=== PATIENT | male | born 1960 ===

== ENCOUNTER 2016-09-12 09:11 | Emergency (ER) | payer OTHER ==
[2016-09-12 09:43] LABS: BASOPHILS 0.6 % (0.0-2.0); EOSINOPHILS 0.7 % (0.0-6.0); HEMATOCRIT 48.6 % (42.0-54.0); HEMOGLOBIN 16.8 g/dL (14.0-18.0); LYMPHOCYTES 13.6 % (20.0-40.0); LYMPHOCYTES# 0.9 X 10^3uL (0.8-3.8); MEAN CELL VOLUME 88.2 fL (80.0-100.0); MEAN CORPUS. HGB CONCENTRATION 34.5 g/dL (32.0-36.0); MEAN CORPUSCULAR HEMOGLOBIN 30.4 pg (29.0-35.0); MEAN PLATELET VOLUME 8.9 fL (7.4-10.4); MONOCYTES 8.3 % (2.0-10.0); MONOCYTES# 0.5 X 10^3uL (0.2-1.0); NEUTROPHILS 76.8 % (54.0-75.0); NEUTROPHILS# 4.9 X 10^3uL (2.6-6.7); PLATELET COUNT 168 X 10^3uL (130-440); RED BLOOD COUNT 5.51 X 10^6uL (4.20-6.10); RED CELL DISTRIBUTION WIDTH 12.5 % (11.5-14.5); WHITE BLOOD COUNT 6.3 X 10^3uL (3.9-10.7)
[2016-09-12 09:57] LABS: ALBUMIN 4.4 g/dL (3.5-5.0); ALKALINE PHOSPHATASE 62 U/L (38-126); ALT 59 U/L (21-72); AST 34 U/L (17-59); BILIRUBIN, DIRECT 0.4 mg/dL (0.0-0.4); BILIRUBIN, TOTAL 0.9 mg/dL (0.2-1.3); BLOOD UREA NITROGEN 13 mg/dL (9-20); CALCIUM 9.2 mg/dL (8.4-10.2); CHLORIDE 103 mmol/L (98-107); EST GLOMERULAR FILTRATION RATE > 60 mL/min; GLUCOSE 102 mg/dL (70-100); LIPASE 58 U/L (23-300); POTASSIUM 3.7 mmol/L (3.5-5.1); SODIUM 141 mmol/L (137-145); TOTAL PROTEIN 7.8 g/dL (6.3-8.2)
[2016-09-12 10:03] LABS: URINE MUCUS NONE SEEN (Up to 25%); URINE SQUAMOUS EPITHELIAL CELL NONE SEEN (<= 15/hpf); URINE WBC NONE SEEN (0-4/hpf)
[2016-09-12] MEDS ORDERED: ONDANSETRON HCL 4 MG/2 ML VIAL ONE (10:03)
[2016-09-12 10:17] LABS: URINE APPEARANCE CLEAR; URINE COLOR YELLOW; URINE LEUKOCYTE ESTERASE NEGATIVE (NEGATIVE); URINE NITRITE NEGATIVE (NEGATIVE); URINE PROTEIN 10mg/dL (trace) (NEG - TRACE); URINE SPECIFIC GRAVITY > OR = 1.030 (0.001-1.035)
[2016-09-12 10:18] LABS: URINE AMORPHOUS SEDIMENT UP TO 25%/lpf (Up to 25%); URINE BILIRUBIN 0.5 mg/100ml (1+) (NEGATIVE); URINE BLOOD 10 Ery/uL (1+) (NEGATIVE); URINE GLUCOSE NORMAL (NEGATIVE); URINE KETONE 50mg/dL (2+) (NEGATIVE); URINE RBC 0-5/hpf (0-5/hpf); URINE UROBILINOGEN 0.2mg/dL (Normal) (NEG-1mg/dL)
[2016-09-12] MEDS ORDERED: AZITHROMYCIN 250 MG TABLET PO ONE (13:07)
--- NOTE | 2016-09-12 13:08 | ER PHYSICIAN DOCUMENTATION ---
Physician Documentation [facility] Name:Tre Stanley Age:55 yrs Sex:Male :1960 Arrival Date:09/12/2016 Time:09:11 Bed5 Private MD: Carlos Younger Disposition: 09/13 12:11 Chart complete. tl1 Disposition: 09/12/16 12:58 Discharged to Home/Self Care. Impression: Diarrhea Infectious. - Condition is Good. - Discharge Instructions: DIARRHEA, Bacterial (8y-Adult). - Medical Reconciliation form form. - Follow up: Private Physician; When: 4- 6 days; Reason: Recheck today's complaints, Continuance of care. - Problem is new. - Symptoms have improved. HPI: 09/12 09:42 This 55 yrs old Unknown Male presents to ER with complaints of Nausea, Diarrhea. tl1 09:42 The patient presents to the emergency department with nausea, with diarrhea, 6 times tl1 since last night. 09:42 Onset: The symptom(s)/episode began/occurred 2 day(s) ago. Possible causes: bad food tl1 exposure, sick contacts, travel, returned from [place], 2 weeks ago. Associated signs and symptoms: Pertinent positives: abdominal pain, nausea, some bloating. Stools are very foul smelling, Pertinent negatives: fever, GI bleeding, vomiting. The patient has not experienced similar symptoms in the past. 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 Historical: - Allergies: No known drug Allergies; - Home Meds: 1. losartan oral - PMHx: None; - PSHx: None; - Ebola Screening: : Patient negative for fever greater than or equal to 101.5 degrees Fahrenheit, and additional compatible Ebola Virus Disease symptoms. Patient denies exposure to infectious person. Patient denies travel to an Ebola-affected area in the 21 days before illness onset. No symptoms or risks identified at this time. . - Immunization history: Pneumococcal vaccine is up to date, Flu Vaccine < 1 year. - Social history: Smoking status: Patient states was never smoker of tobacco. Patient uses alcohol only on a social basis. Patient/guardian denies using street drugs, IV drugs, marijuana. ROS: 09:42 Abdomen/GI: Positive for abdominal pain, diarrhea, abdominal distension. tl1 Exam: 09:42 Constitutional: The patient appears in no acute distress, alert, awake, comfortable, tl1 non-diaphoretic, non-toxic, well developed, well hydrated, well groomed, well nourished. 09:42 Head/face: Exam is negative for acute changes. 09:42 ENT: Mouth: Oral mucosa: pink and intact, moist. 09:42 Neck: ROM/movement: is normal, is supple. 09:42 Cardiovascular: Rate: normal, Rhythm: regular, Heart sounds: normal. 09:42 Respiratory: Respirations: normal, Breath sounds: are normal. 09:42 Abdomen/GI: Bowel sounds: normal, Palpation: soft, mild abdominal tenderness, in the right upper quadrant and left upper quadrant. 09:42 Skin: Exam negative for acute changes. 09:42 Neuro: Exam negative for acute changes. Vital Signs: 09:23 BP 153 / 101 (auto/); sc1 09:24 Pulse Ox 94% ; sc1 MDM: 09:28 Patient medically screened. tl1 11:00 Differential diagnosis: viral gastroenteritis, gastroenteritis, food poisoning. Data tl1 reviewed: vital signs, nurses notes, and as a result, I will discharge patient. Counseling: I had a detailed discussion with the patient and/or guardian regarding: the historical points, exam findings, and any diagnostic results supporting the discharge/admit diagnosis, lab results, the need for outpatient follow up, to return to the emergency department if symptoms worsen or persist or if there are any questions or concerns that arise at home. Medication response: The patient's symptoms have improved. Response to treatment: the patient's symptoms have mildly improved after treatment, and as a result, I will discharge patient. ED course: After some shared decision making, we thought it would be best to start antibiotics and he was given 1 gm of azithromycin.. 09/12 09:50 Order name: CBC AUTO DIF, MDIF/RMOR IF IND; Complete Time: 11:13 EDMS 09/12 11:12 Interpretation: WHITE BLOOD COUNT 6.3; HEMOGLOBIN 16.8; HEMATOCRIT 48.6; PLATELET COUNT tl1 168. 09/12 09:58 Order name: BASIC METABOLIC PANEL; Complete Time: 11:13 EDMS 09/12 11:12 Interpretation: Normal: SODIUM 141; POTASSIUM 3.7; CHLORIDE 103; CARBON DIOXIDE 23; tl1 GLUCOSE 102; BLOOD UREA NITROGEN 13; CREATININE 1.2; EST GLOMERULAR FILTRATION RATE > 60; CALCIUM 9.2. 09/12 09:58 Order name: HEPATIC PANEL; Complete Time: 11:13 EDCT 09/12 11:12 Interpretation: Normal: ALT 59; ALBUMIN 4.4; ALKALINE PHOSPHATASE 62; AST 34; tl1 BILIRUBIN, TOTAL 0.9; BILIRUBIN, DIRECT 0.4; TOTAL PROTEIN 7.8. 09/12 09:58 Order name: LIPASE; Complete Time: 11:13 EDCT 09/12 10:19 Order name: UA W/ MICRO -CULTURE IF IND; Complete Time: 11:13 EDCT 09/12 11:13 Interpretation: Normal Except: URINE KETONE 50mg/dL (2+); URINE BLOOD 10 Amadeo/uL (1+); tl1 URINE BACTERIA 20-50 ORGANISMS/hpf. 09/12 11:01 Order name: FECAL LEUKS (LACTOFERRIN) EDCT 09/12 11:12 Interpretation: Abnormal: FECAL LEUKS (LACTOFERRIN) POSITIVE. tl1 09/12 11:50 Order name: STOOL CULTURE PANEL EDCT 09/12 12:19 Order name: GIARDIA ASSAY EDCT 09/13 06:22 Order name: URINE CULTURE EDCT 09/12 09:39 Order name: Iv Saline Lock; Complete Time: 09:48 [facility] [place] Medications: 09:48 Drug: NS 0.9% 1000 ml; Route: IV; Rate: bolus; Site: left antecubital; [facility] [place]:07 Follow up: IV Status: Completed infusion; IV Intake: 1000ml [facility] [place] 09:48 Drug: Zofran 4 mg; Route: IVP; Infused Over: 2 mins; Site: left antecubital; [facility] [place] 10:46 Follow up: Response: No adverse reaction; Nausea is decreased [facility] [place] 10:15 Drug: Dilaudid 0.5 mg; Route: IVP; Site: left antecubital; [facility] [place] 10:47 Follow up: Response: No adverse reaction; Pain is decreased [facility] 12:51 Drug: Zithromax 1 grams; Route: PO; [facility] 13:07 Follow up: Response: No adverse reaction [facility] Signatures: Codie Moya RN RN de1 Carlos Devi MD MD tl1
--- NOTE | 2016-09-12 13:08 | ER NURSING DOCUMENTATION ---
Nurse's Notes [facility] Name:Tre Stanley Age:55 yrs Sex:Male :1960 Arrival Date:09/12/2016 Time:09:11 Bed5 Private MD: Diagnosis:Diarrhea Infectious Presentation: 09/12 09:25 Acuity: JENNIFER 3 sc1 09:39 Presenting complaint: Patient states: right upper abdominal pain, nausea, fowl smelling sc1 diarrhea since yesterday. Transition of care: patient was not received from another setting of care. Notified ED Physician of patient's arrival and CC Dr. Devi notified. 09:39 Method Of Arrival: Private Vehicle sc1 Triage Assessment: 09:47 General: Appears in no apparent distress, well developed, well nourished, well groomed, sc1 Behavior is cooperative, pleasant. Pain: Complains of pain in right upper quadrant. GI: Reports diarrhea, nausea. Historical: - Allergies: No known drug Allergies; - Home Meds: 1. losartan oral - PMHx: None; - PSHx: None; - Ebola Screening: : Patient negative for fever greater than or equal to 101.5 degrees Fahrenheit, and additional compatible Ebola Virus Disease symptoms. Patient denies exposure to infectious person. Patient denies travel to an Ebola-affected area in the 21 days before illness onset. No symptoms or risks identified at this time. . - Immunization history: Pneumococcal vaccine is up to date, Flu Vaccine < 1 year. - Social history: Smoking status: Patient states was never smoker of tobacco. Patient uses alcohol only on a social basis. Patient/guardian denies using street drugs, IV drugs, marijuana. Screenin:56 Infectious Disease Risk None. Abuse screen: Denies threats or abuse. Nutritional sc1 screening: No deficits noted. Vital Signs: 09:23 BP 153 / 101 (auto/); sc1 09:24 Pulse Ox 94% ; sc1 ED Course: 09:13 Patient arrived in ED. ama 09:25 Codie Moya RN is Primary Nurse. sc1 09:25 Triage completed. sc1 09:27 Carlos Devi MD is Attending Physician. tl1 09:38 Inserted peripheral IV: 20 gauge in left antecubital area and blood collected. sc1 09:47 Notified ED Physician of patient's arrival and chief complaint. Dr. Devi notified. Arm sc1 band placed on Bed in low position Call Light in Reach Gowned HOB Elevated Side rails up x2. 12:56 Discontinued IV intact, bleeding controlled, pressure dressing applied, No sc1 redness/swelling at site. Administered Medications: 09:48 Drug: NS 0.9% 1000 ml; Route: IV; Rate: bolus; Site: left antecubital; ks1 13:07 Follow up: IV Status: Completed infusion; IV Intake: [place] [facility] [place] Drug: Zofran 4 mg; Route: IVP; Infused Over: 2 mins; Site: left antecubital; ks1 10:46 Follow up: Response: No adverse reaction; Nausea is decreased ks1 10:15 Drug: Dilaudid 0.5 mg; Route: IVP; Site: left antecubital; ks1 10:47 Follow up: Response: No adverse reaction; Pain is decreased [facility] [place] Drug: Zithromax 1 grams; Route: PO; ks1 13:07 Follow up: Response: No adverse reaction [facility] [place]ake: 13:07 IV: 1000ml; Total: 1000ml. [facility] [place] Outcome: 12:57 Discharged to home ambulatory. ks1 12:57 Condition: stable 12:57 Discharge instructions given to patient, Instructed on discharge instructions, follow up and referral plans. medication usage, Demonstrated understanding of instructions, medications, Prescriptions given X 1. 12:58 Discharge ordered by . tl1 13:07 [place] left the ED. [facility] [place] 09/13 08:22 Discharge F/U Call: Unable to reach: no answer st 08:50 Discharge F/U Call: Spoke with: patient. other: Name: pt is still having loose stools st but he is feeling a little better. pt is taking Imodium. Signatures: Cortney Sarmiento RN RN Codie Calhoun RN RN ks1 Chriss Brown, Carlos Hodges MD MD tl1
== END 2016-09-12 13:08 | disposition home or self-care (01) ==
LOC: ER 09:11
DX: A09 Infectious gastroenteritis and colitis, unspecified (principal); R14.0 Abdominal distension (gaseous); R10.11 Right upper quadrant pain; R10.12 Left upper quadrant pain; R11.0 Nausea
CPT/HCPCS: 80048; 80076; 81001; 83630; 83690; 85025; 87086; 87188; 87329; 87493; 87899; 96361; 96374; 96375; 99283; J1170; J2405; Q0144